=== PATIENT | male | born 1985 | race African-American/Black ===

== ENCOUNTER → 2018-11-27 | Outpatient (CLI) | payer OTHER ==
[~2018-11-27] MED LIST: ULTRAM 50MG TAB50 MG PO
== END ==
LOC: ULTRA 09:04
DX: R74.8 Abnormal levels of other serum enzymes (principal)

== ENCOUNTER → 2019-08-20 | Outpatient (CLI) | payer OTHER | LOC: ULTRA 08-16 13:27 | DX: R79.89 Other specified abnormal findings of blood chemistry (principal) ==